=== PATIENT | female | born 1960 | race Hispanic/Latino ===

== ENCOUNTER 2017-01-24 12:19 | Emergency (ER) | payer SELFPAY ==
[2017-01-24 12:28] VITALS: BP 149/77
[2017-01-24 12:51] LABS: Basophils % (Auto) 0.5 % (0.0-1.8); Eosinophils % (Auto) 1.3 % (0.0-4.3); Hematocrit 42.7 % (30.3-42.9); Hemoglobin 14.6 gm/dl (10.1-14.3); Mean Corpuscular HGB Conc 34 % (30-34); Mean Corpuscular Hemoglobin 31 pg (28-32); Mean Corpuscular Volume 89 fl (79-97); Platelet Count 317 K/mm3 (140-440); Red Blood Count 4.79 M/mm3 (3.65-5.03); Red Cell Distribution Width 13.8 % (13.2-15.2); White Blood Count 15.6 K/mm3 (4.5-11.0)
[2017-01-24] MEDS ORDERED: NACL 0.9% 1000 ML 1,000 ML IV ONE (12:55)
[2017-01-24 13:12] LABS: Alanine Aminotransferase 19 units/L (7-56); Albumin 3.8 g/dL (3.9-5); Albumin/Globulin Ratio 1.1 %; Alkaline Phosphatase 137 units/L (35-129); Anion Gap 19 mmol/L; Blood Urea Nitrogen 14 mg/dL (7-17); Calcium 8.6 mg/dL (8.4-10.2); Carbon Dioxide 21 mmol/L (22-30); Chloride 100.5 mmol/L (98-107); Glucose 97 mg/dL (65-100); Lipase 33 units/L (13-60); Potassium 4.3 mmol/L (3.6-5.0); Sodium 136 mmol/L (137-145); Total Protein 7.4 g/dL (6.3-8.2)
[2017-01-24 13:27] LABS: Bacteria,Urine 1+ /HPF (Negative); Bilirubin,Urine NEG (Negative); Blood,Urine LG (Negative); Ketones,Urine NEG (Negative); Leukocyte Esterase,Urine NEG (Negative); Mucus,Urine FEW /HPF; Nitrite,Urine NEG (Negative); Protein,Urine <15 mg/dL mg/dL (Negative); Urobilinogen,Urine < 2.0 mg/dL (<2.0); WBC,Urine < 1.0 /HPF (0.0-6.0)
[2017-01-24] MEDS ORDERED: ZOFRAN IV ONE (13:27)
[2017-01-24] MEDS ORDERED: MORPHINE IV ONE (13:27)
[2017-01-24] MEDS ORDERED: ZOSYN/NS 4.5GM/100ML 4.5 GM/100 ML VIAL IV ONE (13:27)
--- NOTE | 2017-01-24 14:38 | Emergency Department Report ---
ED General Adult HPI - General Chief complaint: Abdominal Pain Stated complaint: LT SIDE PAIN Time Seen by Provider: 01/24/17 12:51 Source: patient Mode of arrival: Ambulatory Limitations: No Limitations - History of Present Illness Initial comments: Patient complains of left lower quadrant pain since yesterday. She states that she has had this pain somewhat intermittently in the past but not this severe. She felt as though she had a fever earlier but not measure her temperature. She denies nausea vomiting or diarrhea. She states she had a kidney stone before but this feels somewhat different. The pain starts in the left lower quadrant and somewhat radiates to the right side but not posteriorly. She has a history of a cholecystectomy. -: Gradual, hour(s) Location: abdomen, left Radiation: other (Kayexalate for his the right anteriorly) Quality: aching Consistency: constant Improves with: none Associated Symptoms: denies other symptoms (subjective fever) Treatments Prior to Arrival: none - Related Data Previous Rx's Medication Instructions Recorded Last Taken Type Ciprofloxacin HCl [Ciprofloxacin 500 mg PO Q12HR #14 tab 01/24/17 Unknown Rx TAB] HYDROcodone/APAP 5-325 [[place] 1 each PO Q6HR PRN #14 tablet 01/24/17 Unknown Rx 5/325] Allergies Allergy/AdvReac Type Severity Reaction Status Date / Time No Known Allergies Allergy Unverified 01/24/17 12:22 ED Review of Systems ROS: Stated complaint: LT SIDE PAIN Other details as noted in HPI Constitutional: see HPI. denies: chills Eyes: denies: eye pain, eye discharge, vision change ENT: denies: ear pain, throat pain Respiratory: denies: cough, shortness of breath, wheezing Cardiovascular: denies: chest pain, palpitations Endocrine: no symptoms reported Gastrointestinal: as per HPI, abdominal pain. denies: nausea, diarrhea Genitourinary: denies: urgency, dysuria, discharge Musculoskeletal: denies: back pain, joint swelling, arthralgia Skin: denies: rash, lesions Neurological: denies: headache, weakness, paresthesias Psychiatric: denies: anxiety, depression Hematological/Lymphatic: denies: easy bleeding, easy bruising ED Past Medical Hx - Past Medical History Hx Diabetes: Yes Additional medical history: high cholesterol - Surgical History Hx Cholecystectomy: Yes Additional Surgical History: tonsil and adnoids, tubes in ears - Social History Smoking Status: Current Every Day Smoker Substance Use Type: None - Medications Home Medications: Home Medications Medication Instructions Recorded Confirmed Last Taken Type Ciprofloxacin HCl [Ciprofloxacin 500 mg PO Q12HR #14 tab 01/24/17 Unknown Rx TAB] HYDROcodone/APAP 5-325 [[place] 1 each PO Q6HR PRN #14 tablet 01/24/17 Unknown Rx 5/325] ED Physical Exam - General Limitations: No Limitations General appearance: alert, in no apparent distress - Head Head exam: Present: atraumatic, normocephalic - Eye Eye exam: Present: normal appearance. Absent: scleral icterus - ENT ENT exam: Present: mucous membranes moist - Neck Neck exam: Present: normal inspection - Respiratory Respiratory exam: Present: normal lung sounds bilaterally. Absent: respiratory distress - Cardiovascular Cardiovascular Exam: Present: regular rate, normal rhythm. Absent: systolic murmur, diastolic murmur, rubs, gallop - GI/Abdominal GI/Abdominal exam: Present: soft, tenderness (left lower quadrant tenderness to palpation), normal bowel sounds. Absent: distended, guarding, rebound, rigid - Extremities Exam Extremities exam: Present: normal inspection - Back Exam Back exam: Present: normal inspection - Neurological Exam Neurological exam: Present: alert, oriented X3, CN II-XII intact. Absent: motor sensory deficit - Psychiatric Psychiatric exam: Present: normal affect, normal mood - Skin Skin exam: Present: warm, dry, intact, normal color. Absent: rash ED Course Vital Signs 01/24/17 01/24/17 12:22 13:21 Temperature 98.6 F Pulse Rate 79 Respiratory 18 18 Rate Blood Pressure 149/77 O2 Sat by Pulse 98 100 Oximetry - Reevaluation(s) Reevaluation #1: Patient was given Zofran and Morphine. One dose of Zofran. According to Dr. Fine radiologist patient has no signs of diverticulitis but sigmoid diverticulosis. Reexamination the patient was found to be walking without difficulty back from the bathroom. Her abdominal exam revealed no left lower quadrant tenderness. She stated that she was having more discomfort in the upper left quadrant but really was not tender there either. Looking at the patient's CT I wondered whether she might have some haziness in the mesentery associated with the sigmoid. If she does have a diverticulitis, I would assume it is very early. I discussed this with Dr. Wallis. He stated that he would be happy to see the patient in his office for reexamination. He requested that the patient be placed on Levaquin. 01/24/17 15:13 ED Medical Decision Making - Lab Data Result diagrams: 01/24/17 12:39 01/24/17 12:39 Laboratory Results - last 24 hr 01/24/17 01/24/17 01/24/17 12:39 12:39 12:45 WBC 15.6 H RBC 4.79 Hgb 14.6 H Hct 42.7 MCV 89 MCH 31 MCHC 34 RDW 13.8 Plt Count 317 Lymph % (Auto) 28.4 [place] % (Auto) 7.4 H Eos % (Auto) 1.3 Baso % (Auto) 0.5 Lymph # 4.4 [place] # 1.1 H Eos # 0.2 Baso # 0.1 Seg Neutrophils % 62.4 Seg Neutrophils # 9.7 H Sodium 136 L Potassium 4.3 Chloride 100.5 Carbon Dioxide 21 L Anion Gap 19 BUN 14 Creatinine 0.4 L Estimated GFR > 60 BUN/Creatinine Ratio 35.00 Glucose 97 Calcium 8.6 Total Bilirubin 0.20 AST 13 ALT 19 Alkaline Phosphatase 137 H Total Protein 7.4 Albumin 3.8 L Albumin/Globulin Ratio 1.1 Lipase 33 Urine Color Straw Urine Turbidity Clear Urine pH 5.0 Ur Specific [place] 1.011 Urine Protein <15 mg/dl Urine Glucose (UA) Neg Urine Ketones Neg Urine Blood Lg Urine Nitrite Neg Urine Bilirubin Neg Urine Urobilinogen < 2.0 Ur Leukocyte Esterase Neg Urine WBC (Auto) < 1.0 Urine RBC (Auto) 5.0 Urine Bacteria (Auto) 1+ Urine Mucus Few - Radiology Data Radiology results: report reviewed interpreted by me: Sigmoid diaphoretic acute process without diverticulitis per Dr. Fine radiologist. Incidental nephrolithiasis. Small umbilical hernia without bowel present. Critical care attestation.: If time is entered above; I have spent that time in minutes in the direct care of this critically ill patient, excluding procedure time. ED Disposition Clinical Impression: Abdominal pain Qualifiers: Abdominal location: left lower quadrant Qualified Code(s): R10.32 - Left lower quadrant pain Diverticulosis Qualifiers: Diverticulosis site: diverticulosis of large intestine Diverticulosis bleeding : diverticulosis without bleeding Qualified Code(s): K57.30 - Diverticulosis of large intestine without perforation or abscess without bleeding Disposition: TO HOME OR SELFCARE Is pt being admited?: No Does the pt Need Aspirin: No Condition: Stable Instructions: Abdominal Pain (ED), Diverticulosis (ED), Diverticulitis (ED) Additional Instructions: Rx as directed. Return to the emergency department if the pain gets worse or if you have any fever. Otherwise see Dr. Wallis in his office by Friday. Prescriptions: Ciprofloxacin HCl [Ciprofloxacin TAB] 500 mg PO Q12HR #14 tab HYDROcodone/APAP 5-325 [[place] 5/325] 1 each PO Q6HR PRN #14 tablet PRN Reason: Pain Referrals: PRIMARY CARE, [Primary Care Provider] - 3-5 Days RIKKI WALLIS MD [Staff Physician] - 2-3 Days Time of Disposition: 15:40
--- NOTE | 2017-01-24 14:46 | Cat Scan Report ---
CT scan of abdomen and pelvis with IV contrast: History: Left lower quadrant pain, leukocytosis. Findings: There is 3 mm subpleural nodule identified at right lower lobe seen on series 2 image 2. No consolidation or pleural effusion. No pericardial effusion. Normal liver pancreas and spleen. Patient status post cholecystectomy. Normal adrenals. Two 1 mm mm nonobstructing calculi right kidney. Subcentimeter cyst upper pole left kidney. Normal bladder. No free intraperitoneal fluid or air. No evidence of adenopathy. Atherosclerotic aorta without aneurysm. Multiple diverticula sigmoid colon without evidence of diverticulitis. No abscess. No evidence of appendicitis. Small umbilical hernia containing fat. Impression: Diverticulitis sigmoid. Nonobstructing calculi right kidney. Cyst left kidney. Small umbilical hernia containing fat. Single nodule right lung.
== END 2017-01-24 15:50 | disposition home or self-care (01) ==
LOC: ED 12:19
DX: R10.32 Left lower quadrant pain (principal); K57.30 Diverticulosis of large intestine without perforation or abscess without bleeding; E11.9 Type 2 diabetes mellitus without complications; F17.200 Nicotine dependence, unspecified, uncomplicated
CPT/HCPCS: 36415; 74177; 80053; 81001; 83690; 85025; 96365; 96375; 99284; J2270; J2405; J2543; J7030; Q9967

== ENCOUNTER 2017-08-20 03:45 | Inpatient (IN) | payer SELFPAY ==
[2017-08-20] MEDS ORDERED: ASPIRIN PO ONE (04:24)
[2017-08-20 04:57] LABS: Basophils % (Auto) 0.3 % (0.0-1.8); Eosinophils % (Auto) 0.3 % (0.0-4.3); Hematocrit 42.2 % (30.3-42.9); Hemoglobin 14.2 gm/dl (10.1-14.3); Lymphocytes # (Auto) 2.8 K/mm3 (1.2-5.4); Lymphocytes % (Auto) 38.8 % (13.4-35.0); Mean Corpuscular HGB Conc 34 % (30-34); Mean Corpuscular Hemoglobin 29 pg (28-32); Mean Corpuscular Volume 87 fl (79-97); Monocytes # (Auto) 0.7 K/mm3 (0.0-0.8); Monocytes % (Auto) 9.1 % (0.0-7.3); Platelet Count 286 K/mm3 (140-440); Red Blood Count 4.85 M/mm3 (3.65-5.03); Red Cell Distribution Width 14.3 % (13.2-15.2)
[2017-08-20 05:13] LABS: BUN/Creatinine Ratio 28; Blood Urea Nitrogen 11 mg/dL (7-17); Calcium 8.4 mg/dL (8.4-10.2); Hemolysis Index 2
[2017-08-20] MEDS ORDERED: TORADOL IV ONE (06:17)
[2017-08-20] MEDS ORDERED: MORPHINE IV ONE (06:17)
[2017-08-20] MEDS ORDERED: FLEXERIL PO ONE (06:17)
[2017-08-20] MEDS ORDERED: ZOFRAN IV ONE (06:18)
--- NOTE | 2017-08-20 06:24 | Emergency Department Report ---
ED General Adult HPI - General Chief complaint: Chest Pain Stated complaint: CP Source: patient, EMS Mode of arrival: Stretcher Limitations: Other - History of Present Illness Initial comments: Ms. Theodore is a 57 yo female with hx of diabetes who presents with 4 days of left flank pain radiating to her upper back and chest. Pain feels like a knot in her back, 20/10 in severity. Worse with movement. Gradual onset but worse over the last 2 days. No vomiting. No urinary difficulties. Denies persistent back pain. She has had diarrhea. She has RLQ pain only when she coughs. She also has a hx of kidney stones. Diabetes has not been managed because she does not have health insurance. She explained that the chest pain really scared her. - Related Data Previous Rx's Medication Instructions Recorded Last Taken Type Ciprofloxacin HCl [Ciprofloxacin 500 mg PO Q12HR #14 tab 01/24/17 Unknown Rx TAB] HYDROcodone/APAP 5-325 [[place] 1 each PO Q6HR PRN #14 tablet 01/24/17 Unknown Rx 5/325] Allergies Allergy/AdvReac Type Severity Reaction Status Date / Time No Known Allergies Allergy Verified 08/20/17 06:12 ED Review of Systems ROS: Stated complaint: CP Other details as noted in HPI Comment: All other systems reviewed and negative Constitutional: denies: fever, malaise Respiratory: denies: cough Genitourinary: denies: dysuria ED Past Medical Hx - Past Medical History Previous Medical History?: Yes Hx Diabetes: Yes Additional medical history: high cholesterol. 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 - Surgical History Past Surgical History?: Yes Hx Cholecystectomy: Yes Additional Surgical History: tonsil and adnoids, tubes in ears - Social History Smoking Status: Current Every Day Smoker Substance Use Type: None - Medications Home Medications: Home Medications Medication Instructions Recorded Confirmed Last Taken Type Ciprofloxacin HCl [Ciprofloxacin 500 mg PO Q12HR #14 tab 01/24/17 Unknown Rx TAB] HYDROcodone/APAP 5-325 [[place] 1 each PO Q6HR PRN #14 tablet 01/24/17 Unknown Rx 5/325] ED Physical Exam - General Limitations: Other General appearance: alert, in no apparent distress - Head Head exam: Present: atraumatic, normocephalic - Eye Eye exam: Present: normal appearance - ENT ENT exam: Present: mucous membranes moist - Neck Neck exam: Present: normal inspection - Respiratory Respiratory exam: Present: normal lung sounds bilaterally. Absent: respiratory distress - Cardiovascular Cardiovascular Exam: Present: regular rate, normal rhythm, normal heart sounds. Absent: systolic murmur, diastolic murmur, rubs, gallop - GI/Abdominal GI/Abdominal exam: Present: soft, normal bowel sounds. Absent: distended, tenderness, guarding, rebound, rigid - Extremities Exam Extremities exam: Present: normal inspection - Back Exam Back exam: Present: normal inspection, full ROM, CVA tenderness (L), muscle spasm (tense paraspinal muscles at the lower left back) - Neurological Exam Neurological exam: Present: alert, oriented X3 - Psychiatric Psychiatric exam: Present: normal affect, normal mood - Skin Skin exam: Present: warm, dry, intact, normal color. Absent: rash ED Course Vital Signs 08/20/17 08/20/17 08/20/17 03:46 04:00 04:15 Temperature Pulse Rate 72 76 Respiratory 25 H 20 Rate Blood Pressure 137/68 119/57 Blood Pressure [Left] O2 Sat by Pulse 93 91 Oximetry 08/20/17 08/20/17 08/20/17 04:30 04:45 05:00 Temperature Pulse Rate 68 69 69 Respiratory 20 23 23 Rate Blood Pressure 117/57 120/55 127/60 Blood Pressure [Left] O2 Sat by Pulse 91 91 91 Oximetry 08/20/17 08/20/17 08/20/17 05:15 05:35 05:40 Temperature Pulse Rate 73 Respiratory 22 18 Rate Blood Pressure 120/58 120/58 Blood Pressure [Left] O2 Sat by Pulse 91 96 96 Oximetry 08/20/17 08/20/17 08/20/17 05:45 06:00 06:15 Temperature Pulse Rate 68 72 74 Respiratory 21 22 24 Rate Blood Pressure 128/55 124/61 133/65 Blood Pressure [Left] O2 Sat by Pulse 90 92 Oximetry 08/20/17 08/20/17 08:00 08:46 Temperature 98.7 F Pulse Rate 72 Respiratory 18 18 Rate Blood Pressure Blood Pressure 135/62 [Left] O2 Sat by Pulse 99 Oximetry ED Medical Decision Making - Lab Data Result diagrams: 08/20/17 04:36 08/20/17 04:36 Laboratory Results - last 24 hr 01/24/18 01/24/18 01/24/18 04:36 04:36 07:22 WBC 7.3 RBC 4.85 Hgb 14.2 Hct 42.2 MCV 87 MCH 29 MCHC 34 RDW 14.3 Plt Count 286 Lymph % (Auto) 38.8 H [place] % (Auto) 9.1 H Eos % (Auto) 0.3 Baso % (Auto) 0.3 Lymph # 2.8 [place] # 0.7 Eos # 0.0 Baso # 0.0 Seg Neutrophils % 51.5 Seg Neutrophils # 3.8 Sodium 136 L Potassium 3.7 Chloride 98.4 Carbon Dioxide 23 Anion Gap 18 BUN 11 Creatinine 0.4 L Estimated GFR > 60 BUN/Creatinine Ratio 28 Glucose 116 H Calcium 8.4 Troponin T < 0.010 < 0.010 Triglycerides Cholesterol LDL Cholesterol Direct HDL Cholesterol Cholesterol/HDL Ratio 08/20/17 09:09 WBC RBC Hgb Hct MCV MCH MCHC RDW Plt Count Lymph % (Auto) [place] % (Auto) Eos % (Auto) Baso % (Auto) Lymph # [place] # Eos # Baso # Seg Neutrophils % Seg Neutrophils # Sodium Potassium Chloride Carbon Dioxide Anion Gap BUN Creatinine Estimated GFR BUN/Creatinine Ratio Glucose Calcium Troponin T 1.830 H* D Triglycerides 303 H Cholesterol 208 H LDL Cholesterol Direct 118 HDL Cholesterol 30 L Cholesterol/HDL Ratio 6.93 - EKG Data -: EKG Interpreted by Me (normal EKG rate 75 ) EKG shows normal: sinus rhythm, axis, intervals, QRS complexes, ST-T waves Rate: normal - EKG Data 08/20/17 11:57 second EKG 1031 NSR nl axis first deg AV block no ST elevation no T wave abnormality - Medical Decision Making Ms. Theodore had pain in several different area including RLQ, lower back and chest pain. Abdominal pain attributed to strain. back pain attributed to spasm. She does have evidence of STEMI second troponin 1.83 Cardiology team DONNELL Montesinos Hernandez and Dr. Balbuena evaluated patient in ED. Heparin protocol initiated. Cardiac cath planned in AM Dr. Russell Hospitalist will admit Critical care attestation.: If time is entered above; I have spent that time in minutes in the direct care of this critically ill patient, excluding procedure time. ED Disposition Clinical Impression: NSTEMI (non-ST elevated myocardial infarction), Lumbar strain Disposition: OP ADMIT IP TO THIS HOSP Is pt being admited?: Yes Condition: Good Referrals: NORMA MORAN MD [Primary Care Provider] - 3-5 Days
--- NOTE | 2017-08-20 06:50 | Cat Scan Report ---
FINAL REPORT EXAM: CT ABDOMEN PELVIS WO CON HISTORY: left flank pain hx of kidney stone TECHNIQUE: Routine axial imaging was obtained of the abdomen and pelvis without IV contrast with sagittal coronal reconstructions. Comparison is made to the study of 01/24/2017. FINDINGS: The lung bases do not show any infiltrates or effusions. There is a stable 3 millimeter noncalcified juxtapleural nodule in the right middle lobe. There is a small hiatal hernia. The gallbladder has been removed. The liver, biliary tree, pancreas, spleen, and adrenal glands appear normal. Both kidneys reveal multiple nonobstructing stones bilaterally measuring up to 2 millimeters in diameter. There is no evidence of hydronephrosis. There calcification of the abdominal aorta. The bowel loops are normal in caliber and course. There are multiple uncomplicated colonic diverticula. The appendix is not enlarged. In the pelvis the uterus and bladder appear normal. There are phleboliths along the floor of the pelvis. The skeletal structures reveal facet arthropathy changes in the lower lumbar spine. IMPRESSION: Bilateral nonobstructing renal calculi. No evidence of hydronephrosis. Uncomplicated colonic diverticulosis. No acute process in the abdomen and pelvis
[2017-08-20] MEDS ORDERED: FLEXERIL ONE (08:30)
[2017-08-20] MEDS ORDERED: MORPHINE ONE (08:30)
[2017-08-20] MEDS ORDERED: TORADOL ONE (08:30)
[2017-08-20] MEDS ORDERED: ZOFRAN ONE (08:31)
[2017-08-20] MEDS ORDERED: BABY ASPIRIN PO ONE (10:22)
[2017-08-20 10:43] LABS: Chol/HDL Ratio 6.93 %
[2017-08-20] MEDS ORDERED: HEPARIN 10,000 UNITS/10 ML IV ONE ×2 (11:55→20:39)
--- NOTE | 2017-08-20 11:56 | Consultation ---
History of Present Illness Consult date: 08/20/17 Requesting physician: ODELL JENNINGS Consult reason: elevated troponin History of present illness: The pt is a 57 yo female with a past medical history significant for DM, HLP, kidney stones and tobacco use. She is previously unknown to our practice. She does not regularly see doctors due to insurance issues. She presented with c/o left flank pain for the past 4 days and chest pain since yesterday evening around 10PM. She feels as though her flank pain is now radiating into her chest. She describes her chest pain as an intermittent, left-sided, nonexertional, nonradiating stabbing pain which is associated with LUE tingling and neck pain. She denies any fever, chills, SOB, palpitations, n/v, diaphoresis , dizziness or syncope. She does admit to a nonproductive cough for the past several days. Admission ECG showed no acute ischemic changes. Troponins are trending upwards, with initial troponin negative for AMI and second troponin 1.830. On evaluation, pt reports near resolution of her chest pain. She denies any prior cardiac issues or cardiac evaluation. Past History Past Medical History: diabetes, hyperlipidemia, other (kidney stones) Past Surgical History: tonsillectomy Social history: smoking. denies: alcohol abuse, prescription drug abuse Medications and Allergies Allergies Allergy/AdvReac Type Severity Reaction Status Date / Time No Known Allergies Allergy Verified 08/20/17 06:12 Home Medications Medication Instructions Recorded Confirmed Last Taken Type Ciprofloxacin HCl [Ciprofloxacin 500 mg PO Q12HR #14 tab 01/24/17 Unknown Rx TAB] HYDROcodone/APAP 5-325 [[place] 1 each PO Q6HR PRN #14 tablet 01/24/17 Unknown Rx 5/325] Review of Systems Constitutional: no weight loss, no weight gain, no fever, no chills, no sweats Ears, nose, mouth and throat: no ear pain, no nose pain, no sinus pressure, no sinus pain Cardiovascular: chest pain, no orthopnea, no palpitations, no rapid/irregular heart beat, no edema, no syncope, no lightheadedness, no shortness of breath, no dyspnea on exertion, no high blood pressure, no leg edema, no decreased exercise tolerance Respiratory: cough, no cough with sputum, no shortness of breath, no dyspnea on exertion, no congestion, no wheezing, no pain on inspiration Gastrointestinal: no nausea, no vomiting, no diarrhea, no constipation, no change in bowel habits Genitourinary Female: no pelvic pain, no flank pain, no dysuria, no urinary frequency, no urgency Musculoskeletal: arm numbness/tingling (LUE), no neck stiffness, no neck pain, no shooting arm pain, no low back pain, no shooting leg pain, no leg numbness/ tingling, no redness of joints Integumentary: no rash, no pruritis, no redness, no sores, no wounds Neurological: no head injury, no paralysis, no weakness, no parathesias, no numbness, no seizures, no syncope Psychiatric: no anxiety Endocrine: no cold intolerance, no heat intolerance Hematologic/Lymphatic: no easy bruising, no easy bleeding, no lymphadenopathy Allergic/Immunologic: no urticaria, no wheezing, no persistent infections Physical Examination Vital Signs BP 137/68 08/20/17 03:46 General appearance: no acute distress HEENT: Positive: PERRL, Normocephaly, Mucus Membranes Moist Neck: Positive: neck supple, trachea midline Cardiac: Positive: Reg Rate and Rhythm, S1/S2 Lungs: Positive: clear to auscultation Neuro: Positive: Grossly Intact, Cranial Nerve 2-12 Intact Abdomen: Positive: Soft. Negative: Tender Skin: Positive: Clear. Negative: Rash, Wound Musculoskeletal: No Fluid Collection, No Pain, Normal Range of Motion Extremities: Absent: edema Results 08/20/17 04:36 08/20/17 04:36 Lipids 08/20/17 Range/Units 09:09 Triglycerides 303 H (2-149) mg/dL Cholesterol 208 H (50-199) mg/dL HDL Cholesterol 30 L (40-59) mg/dL Cholesterol/HDL Ratio 6.93 % CBC 08/20/17 Range/Units 04:36 WBC 7.3 (4.5-11.0) K/mm3 RBC 4.85 (3.65-5.03) M/mm3 Hgb 14.2 (10.1-14.3) gm/dl Hct 42.2 (30.3-42.9) % Plt Count 286 (140-440) K/mm3 Lymph # 2.8 (1.2-5.4) K/mm3 [place] # 0.7 (0.0-0.8) K/mm3 Eos # 0.0 (0.0-0.4) K/mm3 Baso # 0.0 (0.0-0.1) K/mm3 Comprehensive Metabolic Panel 08/20/17 Range/Units 04:36 Sodium 136 L (137-145) mmol/L Potassium 3.7 (3.6-5.0) mmol/L Chloride 98.4 (98-107) mmol/L Carbon Dioxide 23 (22-30) mmol/L BUN 11 (7-17) mg/dL Creatinine 0.4 L (0.7-1.2) mg/dL Glucose 116 H (65-100) mg/dL Calcium 8.4 (8.4-10.2) mg/dL - Imaging and Cardiology Echo: pending Cardiac cath: pending EKG: report reviewed, image reviewed EKG interpretations - Telemetry EKG Rhythm: Sinus Rhythm - EKG Sinus rhythms and dysrhythmias: sinus rhythm Assessment and Plan Assessment: NSTEMI type I - ECG with NAF DM HLP Tobacco use - cessation encouraged Plan: Pt to be admitted per hospitalists. Initiate heparin gtt with initial bolus. Initiate ASA, statin, plavix, lopressor, imdur. Cont to trend Pat. Repeat ECG in AM. Obtain echo. Plan for coronary angiography tomorrow AM pending pt remains clinically stable overnight. Indications, potential risks and benefits of LHC reviewed with pt and she is agreeable to proceed. NPO after MN. The patient has been seen in conjunction with Dr. Balbuena who agrees with the assessment and plan of care.
[2017-08-20] MEDS ORDERED: HEPARIN/ 0.45% NACL-25,000 UNIT/500 ML 25,000 UNIT/500 ML BAG IV SCH (12:00)
[2017-08-20 12:39] LABS: Hematocrit 42.5 % (30.3-42.9); Hemoglobin 14.8 gm/dl (10.1-14.3)
[2017-08-20 12:50] LABS: INR 0.95 (0.87-1.13)
[2017-08-20] MEDS ORDERED: NACL 0.9% 500 ML 500 ML IV SCH (13:00)
[2017-08-20] MEDS ORDERED: IMDUR PO SCH (13:00)
[2017-08-20 13:09] LABS: Partial Thromboplastin Time 129.7 Sec. (24.2-36.6)
[2017-08-20] MEDS: PLAVIX PO SCH (14:45)
[2017-08-20] MEDS: LOPRESSOR PO SCH (22:25)
--- NOTE | 2017-08-20 23:52 | History and Physical Report ---
History of Present Illness Date of examination: 08/20/17 Date of admission: 08/20/17 12:02 Chief complaint: Chest pain 1 day History of present illness: History of Present Illness Ms. Theodore is a 57 yo female with hx of diabetes who presents with 4 days of left flank pain radiating to her upper back and chest. Pain feels like a knot in her back, 20/10 in severity. Worse with movement. Gradual onset but worse over the last 2 days. No vomiting. No urinary difficulties. Denies persistent back pain. She has had diarrhea. She has RLQ pain only when she coughs. She also has a hx of kidney stones. Diabetes has not been managed because she does not have health insurance. She explained that the chest pain really scared her. Past Medical History Previous Medical History?: Yes Hx Diabetes: Yes Additional medical history: high cholesterol. - Surgical History Past Surgical History?: Yes Hx Cholecystectomy: Yes Additional Surgical History: tonsil and adenoids, tubes in ears - Social History Smoking Status: Current Every Day Smoker Substance Use Type: None - Medications Home Medications: Home Medications Medication Instructions Recorded Confirmed Last Taken Type Ciprofloxacin HCl [Ciprofloxacin 500 mg PO Q12HR #14 tab 01/24/17 Unknown Rx TAB] HYDROcodone/APAP 5-325 [[place] 1 each PO Q6HR PRN #14 tablet 01/24/17 Unknown Rx 5/325] Past History Past Medical History: diabetes, hyperlipidemia, other (kidney stones) Past Surgical History: tonsillectomy Social history: smoking. denies: alcohol abuse, prescription drug abuse Medications and Allergies Allergies Allergy/AdvReac Type Severity Reaction Status Date / Time No Known Allergies Allergy Verified 08/20/17 06:12 Home Medications Medication Instructions Recorded Confirmed Last Taken Type No Known Home Medications [No 08/20/17 08/20/17 Unknown History Reported Home Medications] Active Meds: Active Medications Aspirin (Aspirin) 325 mg PO QDAY G[facility] Atorvastatin Calcium (Lipitor) 40 mg PO QHS [facility] Last Admin: 08/20/17 22:25 Dose: 40 mg Clopidogrel Bisulfate (Plavix) 75 mg PO DAILY [facility] Last Admin: 08/20/17 14:45 Dose: 75 mg Heparin Sodium/Sodium Chloride (Heparin/ 0.45% Nacl-25,000 Unit/500 Ml) 25,000 unit in 500 mls @ 20 mls/hr IV TITRATE GURINDER; 1,000 UNITS/HR PRN Reason: Protocol Last Titration: 08/20/17 19:36 Dose: 1,050 units/hr, 21 mls/hr Isosorbide Mononitrate (Imdur) 30 mg PO QDAY [facility] Last Admin: 08/20/17 14:44 Dose: 30 mg Metoprolol Tartrate (Lopressor) 12.5 mg PO BID [facility] Last Admin: 08/20/17 22:25 Dose: 12.5 mg Review of Systems All systems: negative Cardiovascular: chest pain Gastrointestinal: abdominal pain Exam - Constitutional Vitals: Temp Pulse Resp BP Pulse Ox 98.2 F 74 18 105/56 94 08/20/17 20:09 08/20/17 22:25 08/20/17 20:09 08/20/17 22:25 08/20/17 20:09 General appearance: Present: mild distress, well-nourished - EENT Eyes: Present: PERRL ENT: hearing intact, clear oral mucosa - Neck Neck: Present: supple, normal ROM - Respiratory Respiratory effort: normal Respiratory: bilateral: CTA - Cardiovascular Heart rate: 80 Rhythm: regular Heart Sounds: Present: S1 & S2. Absent: rub, click - Extremities Extremities: pulses symmetrical, No edema Peripheral Pulses: within normal limits - Abdominal General gastrointestinal: Present: soft, non-tender, non-distended, normal bowel sounds Female genitourinary: Present: normal - Integumentary Integumentary: Present: clear, warm, dry - Musculoskeletal Musculoskeletal: gait normal, strength equal bilaterally - Psychiatric Psychiatric: appropriate mood/affect, intact judgment & insight - Neurologic Neurologic: CNII-XII intact, moves all extremities Results - Labs CBC & Chem 7: 08/21/17 04:51 08/21/17 04:51 Labs: Laboratory Last Values WBC 7.3 K/mm3 (4.5-11.0) 08/20/17 04:36 RBC 4.85 M/mm3 (3.65-5.03) 08/20/17 04:36 Hgb 14.8 gm/dl (10.1-14.3) H 08/20/17 12:27 Hct 42.5 % (30.3-42.9) 08/20/17 12:27 MCV 87 fl (79-97) 08/20/17 04:36 MCH 29 pg (28-32) 08/20/17 04:36 MCHC 34 % (30-34) 08/20/17 04:36 RDW 14.3 % (13.2-15.2) 08/20/17 04:36 Plt Count 279 K/mm3 (140-440) 08/20/17 12:27 Lymph % (Auto) 38.8 % (13.4-35.0) H 08/20/17 04:36 [place] % (Auto) 9.1 % (0.0-7.3) H 08/20/17 04:36 Eos % (Auto) 0.3 % (0.0-4.3) 08/20/17 04:36 Baso % (Auto) 0.3 % (0.0-1.8) 08/20/17 04:36 Lymph # 2.8 K/mm3 (1.2-5.4) 08/20/17 04:36 [place] # 0.7 K/mm3 (0.0-0.8) 08/20/17 04:36 Eos # 0.0 K/mm3 (0.0-0.4) 08/20/17 04:36 Baso # 0.0 K/mm3 (0.0-0.1) 08/20/17 04:36 Seg Neutrophils % 51.5 % (40.0-70.0) 08/20/17 04:36 Seg Neutrophils # 3.8 K/mm3 (1.8-7.7) 08/20/17 04:36 PT 13.1 Sec. (12.2-14.9) 08/20/17 12:27 INR 0.95 (0.87-1.13) 08/20/17 12:27 APTT 129.7 Sec. (24.2-36.6) H* 08/20/17 12:27 Heparin Anti-Xa Level < 0.10 U.I./ml (0.3-0.7) L 08/20/17 17:24 Sodium 136 mmol/L (137-145) L 08/20/17 04:36 Potassium 3.7 mmol/L (3.6-5.0) 08/20/17 04:36 Chloride 98.4 mmol/L (98-107) 08/20/17 04:36 Carbon Dioxide 23 mmol/L (22-30) 08/20/17 04:36 Anion Gap 18 mmol/L 08/20/17 04:36 BUN 11 mg/dL (7-17) 08/20/17 04:36 Creatinine 0.4 mg/dL (0.7-1.2) L 08/20/17 04:36 Estimated GFR > 60 ml/min 08/20/17 04:36 BUN/Creatinine Ratio 28 % 08/20/17 04:36 Glucose 116 mg/dL (65-100) H 08/20/17 04:36 POC Glucose 95 (70-105) 08/20/17 17:22 Calcium 8.4 mg/dL (8.4-10.2) 08/20/17 04:36 Total Creatine Kinase 428 units/L (30-135) H 08/20/17 14:31 CK-MB (CK-2) 2.0 ng/mL (0.0-4.0) 08/20/17 14:31 CK-MB (CK-2) Rel Index 0.4 (0-4) 08/20/17 14:31 Troponin T < 0.010 ng/mL (0.00-0.029) 08/20/17 14:31 Triglycerides 303 mg/dL (2-149) H 08/20/17 09:09 Cholesterol 208 mg/dL (50-199) H 08/20/17 09:09 LDL Cholesterol Direct 118 mg/dL (50-130) 08/20/17 09:09 HDL Cholesterol 30 mg/dL (40-59) L 08/20/17 09:09 Cholesterol/HDL Ratio 6.93 % 08/20/17 09:09 Short CBC 08/20/17 08/21/17 Range/Units 12:27 04:51 WBC 7.9 (4.5-11.0) K/mm3 Hgb 14.8 H 13.6 (10.1-14.3) gm/dl Hct 42.5 39.5 (30.3-42.9) % Plt Count 279 260 (140-440) K/mm3 BMP 08/21/17 04:51 Sodium 141 Potassium 4.1 Chloride 101.0 Carbon Dioxide 26 BUN 13 Creatinine 0.5 L Glucose 97 Calcium 8.2 L Cardiac Enzymes 08/20/17 08/20/17 08/21/17 Range/Units 09:09 14:31 04:51 Total Creatine Kinase 428 H 263 H (30-135) units/L CK-MB (CK-2) 2.0 1.5 (0.0-4.0) ng/mL Troponin T 1.830 H* D < 0.010 < 0.010 (0.00-0.029) ng/mL - Imaging and Cardiology EKG: report reviewed (NSR 54) Assessment and Plan Advance Directives: Yes (FC) VTE prophylaxis?: Chemical Plan of care discussed with patient/family: Yes - Patient Problems (1) NSTEMI (non-ST elevated myocardial infarction) Current Visit: Yes Status: Acute Plan to address problem: On Heparin drip Troponin 1.83 For cath in Am (2) T2DM (type 2 diabetes mellitus) Current Visit: Yes Status: Chronic Qualifiers: Diabetes mellitus complication status: without complication Diabetes mellitus extermination inspector insulin use: without extermination inspector use Qualified Code(s): E11.9 - Type 2 diabetes mellitus without complications Plan to address problem: Not taking any meds Check A1c and start oral hypoglycemics (3) DVT prophylaxis Current Visit: Yes Status: Acute Plan to address problem: on heparin drip
[2017-08-21] MEDS ORDERED: HEPARIN 10,000 UNITS/10 ML IV ONE (03:26)
[2017-08-21 06:07] LABS: Hematocrit 39.5 % (30.3-42.9); Hemoglobin 13.6 gm/dl (10.1-14.3); Mean Corpuscular HGB Conc 34 % (30-34); Mean Corpuscular Hemoglobin 31 pg (28-32); Mean Corpuscular Volume 89 fl (79-97); Platelet Count 260 K/mm3 (140-440); Red Blood Count 4.46 M/mm3 (3.65-5.03); Red Cell Distribution Width 14.4 % (13.2-15.2)
[2017-08-21 06:14] LABS: Creatine Kinase MB 1.5 ng/mL (0.0-4.0); INR 0.96 (0.87-1.13)
[2017-08-21 06:18] LABS: BUN/Creatinine Ratio 26; Blood Urea Nitrogen 13 mg/dL (7-17); Calcium 8.2 mg/dL (8.4-10.2); Hemolysis Index 24
[2017-08-21] MEDS ORDERED: ASPIRIN ONE (08:06)
[2017-08-21] MEDS: PLAVIX PO SCH ×2 (08:14→10:42)
[2017-08-21] MEDS ORDERED: PLAVIX ONE (08:14)
[2017-08-21] MEDS ORDERED: NITROGLYCERIN SYRINGE 0 ML ONE (08:33)
[2017-08-21 08:34] LABS: Band Neutrophils # (Manual) 0.2 K/mm3; Basophils % (Manual) 0 % (0.0-1.8); Total Cells Counted 100
[2017-08-21] MEDS ORDERED: NACL 0.9% 500 ML 500 ML ONE (08:34)
[2017-08-21 08:35] LABS: RBC Morphology Normal
[2017-08-21] MEDS: VERSED ONE ×2 (08:51→09:01)
[2017-08-21] MEDS: SUBLIMAZE ONE ×2 (08:51→09:01)
[2017-08-21] MEDS: CALAN ONE ×2 (08:52→09:06)
[2017-08-21] MEDS: XYLOCAINE 2% INFILTRATI ONE ×2 (08:52→09:04)
[2017-08-21] MEDS: HEPARIN 10,000 UNITS/10 ML ONE ×2 (08:52→09:06)
[2017-08-21] MEDS: HEPARIN/NS 5000 UNIT/500ML(CATH LAB) 1,000 ML IR ONE ×2 (08:53→08:55)
[2017-08-21] MEDS ORDERED: ASPIRIN PO SCH (10:00)
[2017-08-21] MEDS: LOPRESSOR PO SCH (10:47)
--- NOTE | 2017-08-21 10:47 | Progress Note ---
Assessment and Plan Assessment: Atypical chest pain - currently resolved Elevated troponin x 1 set - with downwards trend; ECG with NAF; s/p [facility] this AM which showed normal coronaries DM HLP Tobacco use - cessation encouraged Plan: Pt s/p [facility] this AM which showed normal coronaries. D/c heparin gtt, plavix and Imdur. Decrease ASA to 81mg daily. Await echo. Pending echo reveals no gross abnormalities, pt may discharge home this afternoon from cardiology standpoint. Follow up in our office with Dr. Culp within 1-2 weeks of hospital discharge ( [phone]). The patient has been seen in conjunction with Dr. Balbuena who agrees with the assessment and plan of care. Subjective Date of service: 08/21/17 Principal diagnosis: chest pain Interval history: pt for [facility] this AM. no current complaints. Objective Last Vital Signs Temp 98 F 08/21/17 05:34 Pulse 64 08/21/17 05:34 Resp 20 08/21/17 05:34 BP 96/38 08/21/17 05:34 Pulse Ox 90 08/21/17 05:34 - Physical Examination HEENT: Positive: PERRL, Normocephaly, Mucus Membranes Moist Neck: Positive: neck supple, trachea midline Cardiac: Positive: Reg Rate and Rhythm, S1/S2 Lungs: Positive: clear to auscultation Neuro: Positive: Grossly Intact, Cranial Nerve 2-12 Intact Abdomen: Positive: Soft. Negative: Tender Skin: Positive: Clear. Negative: Rash, Wound Musculoskeletal: No Fluid Collection, No Pain, Normal Range of Motion Extremities: Absent: edema - Labs and Meds Cardiac Enzymes 08/20/17 08/21/17 Range/Units 14:31 04:51 CK-MB (CK-2) 2.0 1.5 (0.0-4.0) ng/mL Coagulation 08/20/17 08/21/17 Range/Units 12:27 04:51 PT 13.1 13.3 (12.2-14.9) Sec. INR 0.95 0.96 (0.87-1.13) APTT 129.7 H* (24.2-36.6) Sec. Lipids 08/20/17 Range/Units 09:09 Triglycerides 303 H (2-149) mg/dL Cholesterol 208 H (50-199) mg/dL HDL Cholesterol 30 L (40-59) mg/dL Cholesterol/HDL Ratio 6.93 % CBC 08/20/17 08/21/17 Range/Units 12:27 04:51 WBC 7.9 (4.5-11.0) K/mm3 RBC 4.46 (3.65-5.03) M/mm3 Hgb 14.8 H 13.6 (10.1-14.3) gm/dl Hct 42.5 39.5 (30.3-42.9) % Plt Count 279 260 (140-440) K/mm3 Lymph # [employer] Comprehensive Metabolic Panel 08/21/17 Range/Units 04:51 Sodium 141 (137-145) mmol/L Potassium 4.1 (3.6-5.0) mmol/L Chloride 101.0 (98-107) mmol/L Carbon Dioxide 26 (22-30) mmol/L BUN 13 (7-17) mg/dL Creatinine 0.5 L (0.7-1.2) mg/dL Glucose 97 (65-100) mg/dL Calcium 8.2 L (8.4-10.2) mg/dL - Imaging and Cardiology EKG: report reviewed (NSR 54) Echo: pending Cardiac cath: pending - Telemetry EKG Rhythm: Sinus Rhythm - EKG Sinus rhythms and dysrhythmias: sinus rhythm
[2017-08-21 10:48] VITALS: BP 104/54
--- NOTE | 2017-08-21 12:29 | Cardiac Catherization Report ---
INDICATION FOR PROCEDURE: The patient is a 57-year-old female who presented with complaints of back pain and chest pain. Cardiac enzymes were mildly elevated with atypical chest pain. The patient has history of diabetes, hypertension and hyperlipidemia. With her chest pains and minimally elevated cardiac enzymes, the patient was treated as non-STEMI and scheduled for cardiac catheterization for definitive diagnosis and treatment. The patient is aware of the procedure, potential complications and alternatives of therapy available. DESCRIPTION OF PROCEDURE: The patient was brought to the catheterization laboratory in a fasting condition. The right wrist area and forearm thoroughly cleansed with Betadine solution and sterile drapes were applied. The patient was evaluated for administering moderate sedation and after evaluation, the patient was given IV Versed and fentanyl around 09:03 a.m. Subsequently, local anesthesia was given in the right wrist area and the right radial artery puncture was made without difficulty. A 5-Telugu Slender sheath was introduced. A 5-Telugu multipurpose catheter was used to obtain the angiograms of the left coronary artery in multiple views followed by angiograms of the right coronary artery and left ventriculogram done in TIJERINA projection using hand injection. At the end of the procedure, catheter and sheath were removed. Good hemostasis was achieved with pressure bandage. No untoward complication was noted. She was monitored after sedation up to 09:17 a.m. for any side effects from sedation. The patient was breathing well, communicate well, and hemodynamically stable. The patient was transferred to the room in stable condition. Following findings were noted. HEMODYNAMICS: 1. Opening aortic pressure 120/58, left ventricular pressure 125/23. No gradient across the aortic valve. Estimated ejection fraction 60%. 2. Left ventriculogram done in TIJERINA projection using hand injection showed normal size left ventricle with normal contractility. Mitral regurgitation could not be evaluated. Right coronary artery dominant vessel arises normally from right coronary cusp, angiographically smooth and normal. 3. Left coronary artery arises normally from left coronary cusp. Left main is long, smooth and normal. LAD and its branches are tortuous, but angiographically smooth and normal circumflex artery. Relatively small vessel is angiographically smooth without any significant disease. FINAL IMPRESSION: 1. Normal sized left ventricle with normal contractility. 2. Essentially normal coronary anatomy angiographically. 3. The patient tolerated the procedure well. No untoward complications were noted. The patient will be continued on risk factor modification and medical therapy. Findings were explained to the patient. JOB# [id number] LUPIS/MAURY TINSLEY
--- NOTE | 2017-08-21 16:47 | Discharge Summary ---
Providers - Providers Date of Admission: 08/20/17 12:02 Date of discharge: 08/21/17 Attending physician: CB MITCHELL Primary care physician: NORMA MORAN Hospitalization Condition: Stable Hospital course: per Cardiology "Assessment: Atypical chest pain - currently resolved Elevated troponin x 1 set - with downwards trend; ECG with NAF; s/p [facility] this AM which showed normal coronaries DM HLP Tobacco use - cessation encouraged Plan: Pt s/p [facility] this AM which showed normal coronaries. D/c heparin gtt, plavix and Imdur. Decrease ASA to 81mg daily. Await echo. Pending echo reveals no gross abnormalities, pt may discharge home this afternoon from cardiology standpoint. Follow up in our office with Dr. Culp within 1-2 weeks of hospital discharge ). The patient has been seen in conjunction with Dr. Balbuena who agrees with the assessment and plan of care." I counseled patient on compliance Disposition: DC- TO HOME OR SELFCARE Time spent for discharge: 34 minutes Core Measure Documentation - Palliative Care Palliative Care/ Comfort Measures: Not Applicable - Core Measures Any of the following diagnoses?: none - VTE Discharge Requirements Deep Vein Thrombosis/Pulmonary Embolism Present on Admission: No Has pt received <5 days of overlap therapy or INR<2.0: No Anticoagulant overlap therapy prescribed at discharge: No Contraindication No Overlap Therapy order at DC: Not Indicated Exam - Physical Exam Narrative exam: GEN: WDWN, NAD, AWAKE, ALERT, ORIENTATED 3 HEENT: NCAT, EOMI, PERRL, OP Clear NECK: supple, no adenopathy, no thyromegaly, no JVD CVS/HEART: RRR, NORMAL S1S2, NO JVD, pulses present bilaterally CHEST/LUNGS: CTA B, Symmetrical chest expansion, good air entry bilaterally GI/Abdomen: soft, NTND, good bowel sounds, no guarding or rebound /Bladder: no suprapubic tenderness, no CVA or paraspinal tenderness EXT/Skin: no c/c/e, no obvious rash MSK: FROM x 4 Neuro: CN 2-12 grossly intact, no new focal deficits Psych: calm - Constitutional Vitals: Temp Pulse Resp BP Pulse Ox 98 F 64 20 104/54 90 08/21/17 05:34 08/21/17 10:47 08/21/17 05:34 08/21/17 10:47 08/21/17 05:34 Plan Activity: other (no strenous activity until cleared by pcp) Diet: low salt Special Instructions: smoking cessation Follow up with: NORMA MORAN MD [Primary Care Provider] - 3-5 Days CAMRYNMARGARET CULP MD [Staff Physician] - 7 Days
[2017-08-22] MEDS ORDERED: BABY ASPIRIN PO SCH (10:00)
== END 2017-08-21 18:00 | disposition home or self-care (01) | DRG 287 ==
LOC: ED 03:45 → 4A 12:02
PROVIDERS: ADMIT Internal Medicine; ATTEND Internal Medicine
PROC: 4A023N7 Measurement of Cardiac Sampling and Pressure, Left Heart, Percutaneous Approach (ICD-10-PCS; principal; 2017-08-21)
PROC: B2151ZZ Fluoroscopy of Left Heart using Low Osmolar Contrast (ICD-10-PCS; 2017-08-21)
PROC: B2111ZZ Fluoroscopy of Multiple Coronary Arteries using Low Osmolar Contrast (ICD-10-PCS; 2017-08-21)
DX: R07.89 Other chest pain (principal); E11.9 Type 2 diabetes mellitus without complications; E78.00 Pure hypercholesterolemia, unspecified; F17.200 Nicotine dependence, unspecified, uncomplicated; Z90.49 Acquired absence of other specified parts of digestive tract; S39.012A Strain of muscle, fascia and tendon of lower back, initial encounter
CPT/HCPCS: 36415; 74176; 80048; 80061; 82550; 82553; 82962; 84484; 85007; 85014; 85018; 85025; 85049; 85520; 85610; 85730; 93005; 93010; 93306; 93458; 96374; 96375; 96376; A9270-GY; C1769; C1894; J1644; J1885; J2250; J2270; J2405; J3010; J7040; Q9967

== ENCOUNTER 2019-02-14 19:15 | Emergency (ER) | payer SELFPAY ==
--- NOTE | 2019-02-14 19:22 | Event Note ---
ED Screening Note Date of service: 02/14/19 Time: 19:21 ED Screening Note: 59 y/o female comes in for left foot pain s/p log fell on it . PMH DM, + smoker This initial assessment/diagnostic orders/clinical plan/treatment(s) is/are subject to change based on patients health status, clinical progression and re- assessment by fellow clinical providers in the ED. Further treatment and workup at subsequent clinical providers discretion. Patient/guardian urged not to elope from the ED as their condition may be serious if not clinically assessed and managed. Initial orders include:
[2019-02-14 19:55] VITALS: BP 156/75
[2019-02-14] MEDS ORDERED: IBUPROFEN PO ONE (20:20)
[2019-02-14] MEDS ORDERED: NORCO 5/325 PO ONE (20:20)
--- NOTE | 2019-02-14 20:26 | Emergency Department Report ---
HPI - General Chief Complaint: Extremity Injury, Lower Time Seen by Provider: 02/14/19 20:13 - HPI HPI: [place] 26 The patient is a 59-year-old female presenting with a chief complaint of left foot pain. Patient states she has had a lesion on the lateral aspect of her left heel for approximately 1 week. Patient denies preceding trauma to this lesion. 3 days ago the patient states she dropped a log onto the dorsum of her left foot. Patient states she's had increased pain at the site since the injury. Patient complains of pain with weightbearing. Location: [See above] Duration: [See above] Quality: [See above] Severity: [See above] Modifying factors: [see above] Context: [see above] Mode of transportation: [not driving] ED Past Medical Hx - Past Medical History Previous Medical History?: Yes Hx Diabetes: Yes Hx Kidney Stones: Yes Additional medical history: high cholesterol. 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 - Surgical History Past Surgical History?: Yes Hx Cholecystectomy: Yes Additional Surgical History: tonsil and adnoids, tubes in ears - Family History Family history: no significant - Social History Smoking Status: Current Every Day Smoker (1/2 pack per day) Substance Use Type: Alcohol (rarely) - Medications Home Medications: Home Medications Medication Instructions Recorded Confirmed Last Taken Type Aspirin [Aspirin BABY CHEW TAB] 81 mg PO QDAY #30 tab.chew 08/21/17 Unknown Rx HYDROcodone/APAP 5-325 [[place] 1 - 2 each PO Q6HR PRN #14 tablet 02/14/19 Unknown Rx 5/325] Ibuprofen [Motrin 800 MG tab] 800 mg PO Q8HR PRN #20 tablet 02/14/19 Unknown Rx ED Review of Systems ROS: Stated complaint: FOOT PAIN Other details as noted in HPI Constitutional: no symptoms reported Eyes: denies: eye pain ENT: denies: throat pain Respiratory: no symptoms reported Cardiovascular: denies: chest pain Endocrine: no symptoms reported Gastrointestinal: denies: abdominal pain Genitourinary: denies: dysuria Musculoskeletal: arthralgia Skin: lesions Neurological: denies: headache Physical Exam - Physical Exam Vital Signs: Vital Signs 02/14/19 02/14/19 02/14/19 19:18 19:19 19:54 Temperature 98.0 F 98.0 F 99 F Pulse Rate 82 86 78 Respiratory 18 16 17 Rate Blood Pressure 189/76 189/76 Blood Pressure 156/75 [Left] O2 Sat by Pulse 95 95 98 Oximetry Physical Exam: GENERAL: The patient is well-developed well-nourished female lying on stretcher not appearing to be in acute distress. [] HEENT: Normocephalic. Atraumatic. Extraocular motions are intact. Patient has moist mucous membranes. NECK: Supple. Trachea midline CHEST/LUNGS:There is no respiratory distress noted. HEART/CARDIOVASCULAR: Regular. There is no tachycardia. 2+ left DP. Capillary refill digits of left foot within normal limits ABDOMEN: Abdomen is soft, nontender. Patient has normal bowel sounds. There is no abdominal distention. SKIN: There is a blister to the lateral aspect of the left heel that is intact. There is no surrounding erythema NEURO: The patient is awake, alert, and oriented. The patient is cooperative. The patient has no focal neurologic deficits. The patient has normal speech MUSCULOSKELETAL: There is tenderness to palpation of the dorsum of the left foot. ED Course Vital Signs 02/14/19 02/14/19 02/14/19 19:18 19:19 19:54 Temperature 98.0 F 98.0 F 99 F Pulse Rate 82 86 78 Respiratory 18 16 17 Rate Blood Pressure 189/76 189/76 Blood Pressure 156/75 [Left] O2 Sat by Pulse 95 95 98 Oximetry ED Medical Decision Making - Radiology Data Radiology results: report reviewed (left foot x-ray), image reviewed (left foot x-ray) interpreted by me: Left foot x-ray-no acute fracture seen [facility] [address] [place] [address] XRay Report Signed Patient: DORY ISBELL MR#: [id number] : 1960 Acct:[id number] Age/Sex: 59 / F ADM Date: 02/14/19 Loc: ED Attending Dr: Ordering Physician: SASCHA PATEL Date of Service: 02/14/19 Procedure(s): XR foot 3+V LT Accession Number(s): [id number] cc: SASCHA PAUL Fluoro Time In Minutes: LEFT FOOT, 3 VIEWS INDICATION / CLINICAL INFORMATION: pain log fell on it.. COMPARISON: None available. FINDINGS: No fracture or dislocation identified. No soft tissue abnormality. IMPRESSION: Negative exam. Signer Name: Alice Roper MD Signed: 02/14/2019 8:40 PM Workstation Name: [id number] Transcribed By: Dictated By: Alice Roper MD Electronically Authenticated By: Alice Roper MD Signed Date/Time: 02/14/192039 DD/ 38 TD/TT: - Differential Diagnosis foot fracture, blister, foot contusion Critical care attestation.: If time is entered above; I have spent that time in minutes in the direct care of this critically ill patient, excluding procedure time. ED Disposition Clinical Impression: Contusion of left foot, Blister of left foot Disposition: TO HOME OR SELFCARE Is pt being admited?: No Does the pt Need Aspirin: No Condition: Stable Additional Instructions: Return to the emergency department immediately should you develop worsening symptoms, fever, inability to tolerate food or liquid or any other concerns. Prescriptions: Ibuprofen [Motrin 800 MG tab] 800 mg PO Q8HR PRN #20 tablet PRN Reason: Pain, Moderate (4-6) HYDROcodone/APAP 5-325 [[place] 5/325] 1 - 2 each PO Q6HR PRN #14 tablet PRN Reason: Pain Referrals: ALEXANDRE RESENDIZ MD [Primary Care Provider] - 3-5 Days DERRELL ROBISON DPM [Staff Physician] - 3-5 Days Time of Disposition: 20:52
--- NOTE | 2019-02-14 20:44 | XRay Report ---
LEFT FOOT, 3 VIEWS INDICATION / CLINICAL INFORMATION: pain log fell on it.. COMPARISON: None available. FINDINGS: No fracture or dislocation identified. No soft tissue abnormality. IMPRESSION: Negative exam. Signer Name: Alice Roper MD Signed: 02/14/2019 8:40 PM Workstation Name: [id number]
== END 2019-02-14 21:04 | disposition home or self-care (01) ==
LOC: ED 19:15
DX: S90.32XA Contusion of left foot, initial encounter (principal); S90.822A Blister (nonthermal), left foot, initial encounter; E11.9 Type 2 diabetes mellitus without complications; E78.00 Pure hypercholesterolemia, unspecified; F17.200 Nicotine dependence, unspecified, uncomplicated; Z87.442 Personal history of urinary calculi; Z79.899 Other long term (current) drug therapy; Z90.49 Acquired absence of other specified parts of digestive tract; W20.8XXA Other cause of strike by thrown, projected or falling object, initial encounter; Y93.89 Activity, other specified; Y92.89 Other specified places as the place of occurrence of the external cause; Y99.8 Other external cause status

== ENCOUNTER 2019-12-28 12:05 | Emergency (ER) | payer SELFPAY ==
--- NOTE | 2019-12-28 13:01 | XRay Report ---
RIGHT ANKLE 3 VIEWS INDICATION / CLINICAL INFORMATION: pain and swelling s/p fall. COMPARISON: None available. FINDINGS: Mild lateral soft tissue swelling. Small calcaneal spurs. No other significant abnormality Signer Name: Jonathan Marvin MD FACR Signed: 12/28/2019 12:56 PM Workstation Name: [id number]
--- NOTE | 2019-12-28 14:16 | Emergency Department Report ---
ED Lower Extremity HPI - General Chief Complaint: Extremity Injury, Lower Stated Complaint: FALL Time Seen by Provider: 12/28/19 13:47 Source: patient Mode of arrival: Wheelchair Limitations: No Limitations - History of Present Illness Initial Comments: 59 y/o female presents to ED this Friday c/o of right ankle pain after stepping in hole and rolling ankle this past Friday and c/o pain to the Ankle and foot since the accident. Complaint: ankle injury -: Sudden Injury: Ankle: Right Type of Injury: inversion Place: home Severity: moderate Worsens With: weight bearing, movement, palpation Context: walking Associated Symptoms: swelling, able to partially bear weight - Related Data Previous Rx's Medication Instructions Recorded Last Taken Type Aspirin [Aspirin BABY CHEW TAB] 81 mg PO QDAY #30 tab.chew 08/21/17 Unknown Rx HYDROcodone/APAP 5-325 [[place] 1 - 2 each PO Q6HR PRN #14 tablet 02/14/19 Unknown Rx 5/325] Ibuprofen [Motrin 800 MG tab] 800 mg PO Q8HR PRN #20 tablet 02/14/19 Unknown Rx Allergies Allergy/AdvReac Type Severity Reaction Status Date / Time No Known Allergies Allergy Verified 12/28/19 12:12 ED Review of Systems ROS: Stated complaint: FALL Other details as noted in HPI Comment: All other systems reviewed and negative ED Past Medical Hx - Past Medical History Previous Medical History?: Yes Hx Congestive Heart Failure: No Hx Diabetes: Yes Hx Kidney Stones: Yes Hx Asthma: No Hx COPD: No Additional medical history: high cholesterol. 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 - Surgical History Past Surgical History?: Yes Hx Cholecystectomy: Yes Additional Surgical History: tonsil and adnoids, tubes in ears - Social History Smoking Status: Current Every Day Smoker Substance Use Type: Alcohol - Medications Home Medications: Home Medications Medication Instructions Recorded Confirmed Last Taken Type Aspirin [Aspirin BABY CHEW TAB] 81 mg PO QDAY #30 tab.chew 08/21/17 Unknown Rx HYDROcodone/APAP 5-325 [[place] 1 - 2 each PO Q6HR PRN #14 tablet 02/14/19 Unknown Rx 5/325] Ibuprofen [Motrin 800 MG tab] 800 mg PO Q8HR PRN #20 tablet 02/14/19 Unknown Rx ED Physical Exam - General Limitations: No Limitations General appearance: alert, in no apparent distress - Head Head exam: Present: atraumatic, normocephalic - Expanded Lower Extremity Exam Right Ankle exam: Present: tenderness (medial malleous region), swelling. Absent: laceration, ecchymosis, dislocation, erythema, anterior draw sign ED Course Vital Signs 12/28/19 14:34 Respiratory 18 Rate ED Lower Extremity MDM - Radiology Data Radiology results: report reviewed Print Report Referring Physician:ED DOCPatient Name:DORY ISBELLPatient ID:[id number] of :[id number]:FemaleAccession:[id number] Date:[id number] Status:Finalized Findings [facility] [address] [place] [address] XRay Report Signed Patient: DORY ISBELL MR#: [id number] : 1960 Acct:[id number] Age/Sex: 59 / F ADM Date: 12/28/19 Loc: ED Attending Dr: Ordering Physician: OJRGE DICKSON MD Date of Service: 12/28/19 Procedure(s): XR ankle 3+V RT Accession Number(s): [id number] cc: ED MD YESSI Fluoro Time In Minutes: RIGHT ANKLE 3 VIEWS INDICATION / CLINICAL INFORMATION: pain and swelling s/p fall. COMPARISON: None available. FINDINGS: Mild lateral soft tissue swelling. Small calcaneal spurs. No other significant abnormality Signer Name: Jonathan Marvin MD FACR Signed: 12/28/2019 12:56 PM Workstation Name: [id number] Transcribed By: MS Dictated By: Jonathan Marvin MD Electronically Authenticated By: Jonathan Marvin MD Signed Date/Time: 12/28/19 1256 DD/ 1256 TD/TT: Critical care attestation.: If time is entered above; I have spent that time in minutes in the direct care of this critically ill patient, excluding procedure time. ED Disposition Clinical Impression: Ankle sprain Disposition: - TO HOME OR SELFCARE Is pt being admited?: No Does the pt Need Aspirin: No Condition: Stable Instructions: Ankle Sprain (ED), RICE Therapy (ED) Referrals: GIRMA COON MD [Primary Care Provider] - 3-5 Days CARLOS EDUARDO BRYANT MD [Staff Physician] - 3-5 Days Forms: Work/School Release Form(ED)
[2019-12-28] MEDS ORDERED: HYDROcodone/ACETAMINOPHEN 5-325 MG TAB PO STA (14:20)
== END 2019-12-28 15:18 | disposition home or self-care (01) ==
LOC: ED 12:05
DX: S93.401A Sprain of unspecified ligament of right ankle, initial encounter (principal); E11.9 Type 2 diabetes mellitus without complications; E78.00 Pure hypercholesterolemia, unspecified; F17.200 Nicotine dependence, unspecified, uncomplicated; Z87.442 Personal history of urinary calculi; Z79.899 Other long term (current) drug therapy; Z90.49 Acquired absence of other specified parts of digestive tract; W17.2XXA Fall into hole, initial encounter; Y93.89 Activity, other specified; Y92.89 Other specified places as the place of occurrence of the external cause; Y99.8 Other external cause status
CPT/HCPCS: 99283

== ENCOUNTER 2020-07-26 07:43 | Emergency (ER) | payer SELFPAY ==
[2020-07-26 08:08] LABS: Basophils # (Auto) 0.1 K/mm3 (0.0-0.1); Basophils % (Auto) 0.5 % (0.0-1.8); Eosinophils # (Auto) 0.1 K/mm3 (0.0-0.4); Eosinophils % (Auto) 1.1 % (0.0-4.3); Hemoglobin 15.6 gm/dl (10.1-14.3); Lymphocytes # (Auto) 3.7 K/mm3 (1.2-5.4); Lymphocytes % (Auto) 32.6 % (13.4-35.0); Mean Corpuscular HGB Conc 34 % (30-34); Mean Corpuscular Volume 90 fl (79-97); Monocytes # (Auto) 0.7 K/mm3 (0.0-0.8); Monocytes % (Auto) 6.3 % (0.0-7.3); Platelet Count 386 K/mm3 (140-440); Red Blood Count 5.12 M/mm3 (3.65-5.03); Red Cell Distribution Width 13.8 % (13.2-15.2)
[2020-07-26 08:31] LABS: Alanine Aminotransferase 20 units/L (7-56); Albumin 3.8 g/dL (3.9-5); Blood Urea Nitrogen 7 mg/dL (7-17); Calcium 9.4 mg/dL (8.4-10.2); Hemolysis Index 13
[2020-07-26 08:36] LABS: BUN/Creatinine Ratio 14
[2020-07-26 09:57] LABS: Bilirubin,Urine NEG (Negative); Blood,Urine SM (Negative); Color,Urine Colorless (Yellow); Protein,Urine <15 mg/dL mg/dL (Negative); Urobilinogen,Urine < 2.0 mg/dL (<2.0); WBC,Urine < 1.0 /HPF (0.0-6.0)
[2020-07-26] MEDS ORDERED: SODIUM CHLORIDE 0.9% 1000 ML 1,000 ML IV ONE (12:39)
[2020-07-26] MEDS ORDERED: ONDANSETRON 4 MG/2 ML INJ IV ONE (12:39)
[2020-07-26] MEDS ORDERED: KETOROLAC 30 MG/1 ML INJ IV ONE (12:39)
[2020-07-26] MEDS ORDERED: MORPHINE 4 MG/1 ML INJ IV ONE (12:39)
--- NOTE | 2020-07-26 12:40 | Emergency Department Report ---
ED General Adult HPI - General Chief complaint: Abdominal Pain Stated complaint: LEFT SIDE KIDNEY PAIN Time Seen by Provider: 07/26/20 12:38 Source: patient Mode of arrival: Ambulatory Limitations: Other - History of Present Illness Initial comments: Patient is a 60-year-old female presents emergency room with complaints of left flank pain that began 4 days ago. She states that she gets intermittent sharp stabbing pain. She states that she does have a history of kidney stones but has not had one in multiple years and was able to pass it on her own without surgical intervention. She states that she has associated nausea. She denies any fever, vomiting, diarrhea, constipation, hematochezia, melena, hematemesis, dysuria, dark urine, odor to the urine, CP, SOB, cough. She also has a past medical history of COPD, NSTEMI, DM. No allergies to medications. - Related Data Previous Rx's Medication Instructions Recorded Last Taken Type Aspirin [Aspirin BABY CHEW TAB] 81 mg PO QDAY #30 tab.chew 08/21/17 Unknown Rx HYDROcodone/APAP 5-325 [[place] 1 - 2 each PO Q6HR PRN #14 tablet 02/14/19 Unknown Rx 5/325] Ibuprofen [Motrin 800 MG tab] 800 mg PO Q8HR PRN #20 tablet 02/14/19 Unknown Rx Naproxen [EC-Naproxen] 500 mg PO BID PRN #14 tablet.dr 07/26/20 Unknown Rx Ondansetron [Zofran Odt] 4 mg PO Q8HR PRN #7 tab.rapdis 07/26/20 Unknown Rx methOCARBAMOL [Robaxin TAB] 500 mg PO BID PRN #14 tab 07/26/20 Unknown Rx traMADoL [Ultram 50 MG tab] 50 mg PO Q6HR PRN #10 tablet 07/26/20 Unknown Rx Allergies Allergy/AdvReac Type Severity Reaction Status Date / Time No Known Allergies Allergy Verified 07/26/20 07:51 ED Review of Systems ROS: Stated complaint: LEFT SIDE KIDNEY PAIN Other details as noted in HPI Comment: All other systems reviewed and negative ED Past Medical Hx - Past Medical History Hx Congestive Heart Failure: No Hx Diabetes: Yes Hx Kidney Stones: Yes Hx Asthma: No Hx COPD: No Additional medical history: high cholesterol. 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 - Surgical History Hx Cholecystectomy: Yes Additional Surgical History: tonsil and adnoids, tubes in ears - Social History Smoking Status: Current Every Day Smoker Substance Use Type: None - Medications Home Medications: Home Medications Medication Instructions Recorded Confirmed Last Taken Type Aspirin [Aspirin BABY CHEW TAB] 81 mg PO QDAY #30 tab.chew 08/21/17 Unknown Rx HYDROcodone/APAP 5-325 [[place] 1 - 2 each PO Q6HR PRN #14 tablet 02/14/19 Unknown Rx 5/325] Ibuprofen [Motrin 800 MG tab] 800 mg PO Q8HR PRN #20 tablet 02/14/19 Unknown Rx Naproxen [EC-Naproxen] 500 mg PO BID PRN #14 tablet.dr 07/26/20 Unknown Rx Ondansetron [Zofran Odt] 4 mg PO Q8HR PRN #7 tab.rapdis 07/26/20 Unknown Rx methOCARBAMOL [Robaxin TAB] 500 mg PO BID PRN #14 tab 07/26/20 Unknown Rx traMADoL [Ultram 50 MG tab] 50 mg PO Q6HR PRN #10 tablet 07/26/20 Unknown Rx ED Physical Exam - General Limitations: Other General appearance: alert, in no apparent distress - Head Head exam: Present: atraumatic, normocephalic - Eye Eye exam: Present: normal appearance - ENT ENT exam: Present: mucous membranes moist - Respiratory Respiratory exam: Present: normal lung sounds bilaterally. Absent: respiratory distress, wheezes, rales, rhonchi, stridor, chest wall tenderness, accessory m uscle use, decreased breath sounds, prolonged expiratory - Cardiovascular Cardiovascular Exam: Present: regular rate, normal rhythm, normal heart sounds. Absent: systolic murmur, diastolic murmur, rubs, gallop - GI/Abdominal GI/Abdominal exam: Present: soft, normal bowel sounds. Absent: distended, tenderness, guarding, rebound, rigid - Back Exam Back exam: Present: CVA tenderness (L). Absent: CVA tenderness (R) - Neurological Exam Neurological exam: Present: alert, oriented X3 - Psychiatric Psychiatric exam: Present: normal affect, normal mood - Skin Skin exam: Present: warm, dry, intact ED Course Vital Signs 07/26/20 07/26/20 07/26/20 07:52 13:31 13:32 Temperature 97.9 F Pulse Rate 74 Respiratory 18 16 16 Rate Blood Pressure 174/64 Blood Pressure [Left] O2 Sat by Pulse 98 Oximetry 07/26/20 14:36 Temperature Pulse Rate 100 H Respiratory 18 Rate Blood Pressure Blood Pressure 156/96 [Left] O2 Sat by Pulse 98 Oximetry ED Medical Decision Making - Lab Data Result diagrams: 07/26/20 07:57 07/26/20 07:57 Lab Results 07/26/20 07/26/20 07/26/20 Range/Units 07:57 07:57 07:57 WBC 11.5 H (4.5-11.0) K/mm3 RBC 5.12 H (3.65-5.03) M/mm3 Hgb 15.6 H (10.1-14.3) gm/dl Hct 46.0 H (30.3-42.9) % MCV 90 (79-97) fl MCH 30 (28-32) pg MCHC 34 (30-34) % RDW 13.8 (13.2-15.2) % Plt Count 386 (140-440) K/mm3 Lymph % (Auto) 32.6 (13.4-35.0) % Eddy % (Auto) 6.3 (0.0-7.3) % Eos % (Auto) 1.1 (0.0-4.3) % Baso % (Auto) 0.5 (0.0-1.8) % Lymph # (Auto) 3.7 (1.2-5.4) K/mm3 Eddy # (Auto) 0.7 (0.0-0.8) K/mm3 Eos # (Auto) 0.1 (0.0-0.4) K/mm3 Baso # (Auto) 0.1 (0.0-0.1) K/mm3 Seg Neutrophils % 59.5 (40.0-70.0) % Seg Neutrophils # 6.8 (1.8-7.7) K/mm3 Sodium 134 L (137-145) mmol/L Potassium 4.2 (3.6-5.0) mmol/L Chloride 100.7 (98-107) mmol/L Carbon Dioxide 25 (22-30) mmol/L Anion Gap 13 mmol/L BUN 7 (7-17) mg/dL Creatinine 0.5 L (0.6-1.2) mg/dL Estimated GFR > 60 ml/min BUN/Creatinine Ratio 14 % Glucose 140 H (65-100) mg/dL Calcium 9.4 (8.4-10.2) mg/dL Total Bilirubin 0.30 (0.1-1.2) mg/dL AST 14 (5-40) units/L ALT 20 (7-56) units/L Alkaline Phosphatase 134 H (35-129) units/L Total Protein 7.6 (6.3-8.2) g/dL Albumin 3.8 L (3.9-5) g/dL Albumin/Globulin Ratio 1.0 % Lipase 31 (13-60) units/L Urine Color (Yellow) Urine Turbidity (Clear) Urine pH (5.0-7.0) Ur Specific [place] (1.003-1.030) Urine Protein (Negative) mg/dL Urine Glucose (UA) (Negative) mg/dL Urine Ketones (Negative) mg/dL Urine Blood (Negative) Urine Nitrite (Negative) Urine Bilirubin (Negative) Urine Urobilinogen (<2.0) mg/dL Ur Leukocyte Esterase (Negative) Urine WBC (Auto) (0.0-6.0) /HPF Urine RBC (Auto) (0.0-6.0) /HPF U Epithel Cells (Auto) (0-13.0) /HPF 12/30/20 Range/Units Unknown WBC (4.5-11.0) K/mm3 RBC (3.65-5.03) M/mm3 Hgb (10.1-14.3) gm/dl Hct (30.3-42.9) % MCV (79-97) fl MCH (28-32) pg MCHC (30-34) % RDW (13.2-15.2) % Plt Count (140-440) K/mm3 Lymph % (Auto) (13.4-35.0) % Eddy % (Auto) (0.0-7.3) % Eos % (Auto) (0.0-4.3) % Baso % (Auto) (0.0-1.8) % Lymph # (Auto) (1.2-5.4) K/mm3 Eddy # (Auto) (0.0-0.8) K/mm3 Eos # (Auto) (0.0-0.4) K/mm3 Baso # (Auto) (0.0-0.1) K/mm3 Seg Neutrophils % (40.0-70.0) % Seg Neutrophils # (1.8-7.7) K/mm3 Sodium (137-145) mmol/L Potassium (3.6-5.0) mmol/L Chloride (98-107) mmol/L Carbon Dioxide (22-30) mmol/L Anion Gap mmol/L BUN (7-17) mg/dL Creatinine (0.6-1.2) mg/dL Estimated GFR ml/min BUN/Creatinine Ratio % Glucose (65-100) mg/dL Calcium (8.4-10.2) mg/dL Total Bilirubin (0.1-1.2) mg/dL AST (5-40) units/L ALT (7-56) units/L Alkaline Phosphatase (35-129) units/L Total Protein (6.3-8.2) g/dL Albumin (3.9-5) g/dL Albumin/Globulin Ratio % Lipase (13-60) units/L Urine Color Colorless (Yellow) Urine Turbidity Clear (Clear) Urine pH 7.0 (5.0-7.0) Ur Specific [place] 1.002 L (1.003-1.030) Urine Protein <15 mg/dl (Negative) mg/dL Urine Glucose (UA) Neg (Negative) mg/dL Urine Ketones Neg (Negative) mg/dL Urine Blood Sm (Negative) Urine Nitrite Neg (Negative) Urine Bilirubin Neg (Negative) Urine Urobilinogen < 2.0 (<2.0) mg/dL Ur Leukocyte Esterase Neg (Negative) Urine WBC (Auto) < 1.0 (0.0-6.0) /HPF Urine RBC (Auto) 1.0 (0.0-6.0) /HPF U Epithel Cells (Auto) < 1.0 (0-13.0) /HPF Vital Signs 07/26/20 07/26/20 07/26/20 07:52 13:31 13:32 Temperature 97.9 F Pulse Rate 74 Respiratory 18 16 16 Rate Blood Pressure 174/64 Blood Pressure [Left] O2 Sat by Pulse 98 Oximetry 07/26/20 14:36 Temperature Pulse Rate 100 H Respiratory 18 Rate Blood Pressure Blood Pressure 156/96 [Left] O2 Sat by Pulse 98 Oximetry - Radiology Data Radiology results: report reviewed CT abdomen pelvis without contrast Impression: no acute abdomen no pelvic abnormality. Bilateral nonobstructing nephrolithiasis. 5 mm right middle lobe pulmonary nodule stable dating back to 08/20/2017. In the absence of high risk for pulmonary neoplasm no routine follow-up is recommended. Radiologist Tobi Bernal MD - Medical Decision Making Patient is a 60-year-old female presents emergency room with complaints of left flank pain that began 4 days ago. She states that she gets intermittent sharp stabbing pain. She states that she does have a history of kidney stones but has not had one in multiple years and was able to pass it on her own without surgical intervention. She states that she has associated nausea. She denies any fever, vomiting, diarrhea, constipation, hematochezia, melena, hematemesis, dysuria, dark urine, odor to the urine, CP, SOB, cough. She also has a past medical history of COPD, NSTEMI, DM. No allergies to medications. vss. on exam: Patient has left CVA tenderness, no abdominal tenderness on exam, no guarding, no rebound, no rigidity, normal bowel sounds, no peritoneal signs. Labs are stable. UA is within normal limits. CT abdomen pelvis without contrast Impression: no acute abdomen no pelvic abnormality. Bilateral nonobstructing nephrolithiasis. 5 mm right middle lobe pulmonary nodule stable dating back to 08/20/2017. In the absence of high risk for pulmonary neoplasm no routine f ollow-up is recommended. Discussed all findings with patient and answered questions. Given the patient is a smoker, discussed the importance of follow-up with primary care doctor regarding pulmonary nodule. Patient given medications while in the emergency department and symptoms completely improved and she was feeling much better and ready to go home. Patient given prescription for naproxen, Robaxin, tramadol, Zofran. Advised patient Please take medication as prescribed. Increase your water intake. Follow-up with your primary care doctor. Follow-up with urologist. Please discuss the incidental finding of a pulmonary nodule on your CT with your primary care doctor. Return to emergency room for any new or worsening symptoms. - Differential Diagnosis UTI, pyelonephritis, hydronephrosis, nephrolithiasis, back pain, constipati Critical care attestation.: If time is entered above; I have spent that time in minutes in the direct care of this critically ill patient, excluding procedure time. ED Disposition Clinical Impression: Left flank pain, Nephrolithiasis, Pulmonary nodule Disposition: DC- TO HOME OR SELFCARE Is pt being admited?: No Does the pt Need Aspirin: No Condition: Stable Instructions: Kidney Stones, Flank Pain, Adult, Abdominal Pain (ED) Additional Instructions: Please take medication as prescribed. Increase your water intake. Follow-up with your primary care doctor. Follow-up with urologist. Please discuss the incidental finding of a pulmonary nodule on your CT with your primary care doctor. Return to emergency room for any new or worsening symptoms. Prescriptions: Naproxen [EC-Naproxen] 500 mg PO BID PRN #14 tablet.dr PRN Reason: pain methOCARBAMOL [Robaxin TAB] 500 mg PO BID PRN #14 tab PRN Reason: pain traMADoL [Ultram 50 MG tab] 50 mg PO Q6HR PRN #10 tablet PRN Reason: Pain , Severe (7-10) Ondansetron [Zofran Odt] 4 mg PO Q8HR PRN #7 tab.rapdis PRN Reason: Nausea And Vomiting Referrals: PRIMARY MD JAYMIE [Primary Care Provider] - 2-3 Days ОЛЬГА MILES MD [Staff Physician] - 2-3 Days Forms: Work/School Release Form(ED) Time of Disposition: 14:12 Print Language: ARABIC
--- NOTE | 2020-07-26 13:55 | Cat Scan Report ---
CT ABDOMEN AND PELVIS WITHOUT CONTRAST INDICATION / CLINICAL INFORMATION: right flank pain, nausea, hx of nephrolithiasis. TECHNIQUE: Axial CT images were obtained through the abdomen and pelvis without IV contrast. All CT scans at [facility] location are performed using CT dose reduction for ALARA by means of automated exposure control. COMPARISON: 08/20/2017 and 01/24/2027 CTA abdomen pelvis FINDINGS: LOWER CHEST: 8 mm perifissural nodule along the left major fissure likely representing a benign intra pulmonary lymph node. 5 mm right middle lobe nodule adjacent to the pleural margin (axial series 2 im age 4) which is stable dating back to 08/20/2017. HEPATOBILIARY: No significant abnormality. PANCREAS/SPLEEN/ADRENALS: No significant abnormality. GENITOURINARY: Few bilateral nonobstructing nephroliths measuring up to 5 mm on the right and 2 mm on the left. No evidence of obstructive uropathy. GASTROINTESTINAL/MESENTERY: No bowel obstruction or inflammation. No significant free fluid or eviden ce of free air. Mild sofy mesentery similar when compared to 08/20/2017. RETROPERITONEUM: No significant adenopathy. REPRODUCTIVE ORGANS: No significant abnormality. VASCULAR: Moderate atherosclerotic calcification without acute abnormality. BODY WALL: No significant abnormality. SKELETAL SYSTEM: No significant abnormality. IMPRESSION: 1. No acute abdominopelvic abnormality. Bilateral nonobstructing nephrolithiasis. 2. 5 mm right middle lobe pulmonary nodule stable dating back to 08/20/2017. In the absence of high ri sk for pulmonary neoplasm no routine follow-up is recommended. Signer Name: Tobi Bernal MD Signed: 07/26/2020 1:51 PM Workstation Name: [id number]
[2020-07-26 14:37] VITALS: BP 156/96
== END 2020-07-26 14:24 | disposition home or self-care (01) ==
LOC: ED 07:43
DX: N20.0 Calculus of kidney (principal); R91.1 Solitary pulmonary nodule; R10.9 Unspecified abdominal pain; E11.9 Type 2 diabetes mellitus without complications; E78.00 Pure hypercholesterolemia, unspecified; F17.200 Nicotine dependence, unspecified, uncomplicated; Z87.442 Personal history of urinary calculi; Z79.899 Other long term (current) drug therapy; Z98.890 Other specified postprocedural states
CPT/HCPCS: 36415; 74176; 80053; 81001; 83690; 85025; 96361; 96374; 96375; 99284; J1885; J2270; J2405; J7030; Q9967

== ENCOUNTER 2021-04-25 10:14 | Emergency (ER) | payer SELFPAY ==
[2021-04-25] MEDS ORDERED: ONDANSETRON 4 MG/2 ML INJ IV ONE (12:33)
[2021-04-25] MEDS ORDERED: SODIUM CHLORIDE 0.9% 1000 ML 1,000 ML IV ONE (12:33)
[2021-04-25] MEDS ORDERED: KETOROLAC 30 MG/1 ML INJ IV ONE (12:33)
[2021-04-25 12:34] VITALS: BP 167/63
--- NOTE | 2021-04-25 12:34 | Emergency Department Report ---
ED Back Pain/Injury HPI - General Chief Complaint: Back Pain/Injury Stated Complaint: SENT BY DR MOJICA/ENOCH FOR KIDNEY STONE Time Seen by Provider: 04/25/21 12:11 Source: patient Limitations: No Limitations - History of Present Illness Initial Comments: 61-year-old female who reports no significant past medical history presents to the ER today with complaints of right flank pain. Patient states that her symptoms started about 3 to 4 days ago. Patient states that the pain has been a constant but waxes and waning pain, and recently started radiating into her right side of her abdomen. She states that she did vomit about 3 days ago but this has since resolved. She still reports mild intermittent nausea. She reports urinary frequency but she accounts that for her increasing her water intake. She denies any dysuria, hematuria, urinary odor or urgency. She denies any fever or chills. Patient states that she had kidney stone several years ago, she called her doctor's office and they recommended that she come to the ER to rule out kidney stone as a possible cause of her pain. Patient states that the pain does seem to be worse with certain movements. She states that when it first started she thought it was related to a pulled muscle because she does do some strenuous activity at work. She has not taken anything for the pain. She states that she has no bowel or bladder incontinence, saddle anesthesia, lower extremity weakness, numbness or tingling. -: Gradual - Related Data Allergies Allergy/AdvReac Type Severity Reaction Status Date / Time No Known Allergies Allergy Verified 04/25/21 10:34 ED Review of Systems ROS: Stated complaint: SENT BY DR MOJICA/ENOCH FOR KIDNEY STONE Other details as noted in HPI Comment: All other systems reviewed and negative Constitutional: denies: chills, fever Eyes: denies: eye pain, eye discharge, vision change ENT: denies: ear pain, throat pain, dental pain, hearing loss, epistaxis, congestion Respiratory: denies: cough, shortness of breath, wheezing Cardiovascular: denies: chest pain, palpitations, dyspnea on exertion, edema, syncope, paroxysmal nocturnal dyspnea Gastrointestinal: abdominal pain, nausea, vomiting. denies: diarrhea, constipation, hematemesis, melena, hematochezia Genitourinary: frequency. denies: urgency, dysuria, hematuria, discharge, abnormal menses, dyspareunia, other Musculoskeletal: denies: back pain, joint swelling, arthralgia Skin: denies: rash, lesions, change in color, change in hair/nails, pruritus Neurological: denies: headache, weakness, numbness, paresthesias, confusion, abnormal gait, vertigo Psychiatric: denies: anxiety, depression, auditory hallucinations, visual hallucinations, homicidal thoughts, suicidal thoughts Hematological/Lymphatic: denies: easy bleeding, easy bruising, swollen glands ED Past Medical Hx - Past Medical History Hx Congestive Heart Failure: No Hx Diabetes: Yes Hx Kidney Stones: Yes Hx Asthma: No Hx COPD: No Additional medical history: high cholesterol. 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 Absent: respiratory distress, wheezes, rales, rhonchi - Cardiovascular Cardiovascular Exam: Present: regular rate, normal rhythm, normal heart sounds - GI/Abdominal GI/Abdominal exam: Present: soft, tenderness (Mild ttp RUQ without guarding or rebound ). Absent: distended, guarding, rebound, rigid - Back Exam Back exam: Present: CVA tenderness (R) (mild ), paraspinal tenderness (mild left lower lumbar area) - Neurological Exam Neurological exam: Present: alert, oriented X3, CN II-XII intact, normal gait - Psychiatric Psychiatric exam: Present: normal affect, normal mood - Skin Skin exam: Present: intact ED Course Vital Signs 04/25/21 10:34 Pulse Rate 71 Respiratory 18 Rate Blood Pressure 167/63 O2 Sat by Pulse 95 Oximetry ED Medical Decision Making - Lab Data Result diagrams: 04/25/21 13:02 04/25/21 13:02 - Radiology Data Radiology results: report reviewed Patient: DORY ISBELL MR#: [id number] : 1960 Acct:[id number] Age/Sex: 61 / F ADM Date: 04/25/21 Loc: ED Attending Dr: Ordering Physician: NAHOMY WOODS Date of Service: 04/25/21 Procedure(s): CT abdomen pelvis wo con Accession Number(s): [id number] cc: NAHOMY WOODS CT ABDOMEN AND PELVIS WITHOUT CONTRAST INDICATION / CLINICAL INFORMATION: Right back/flank pain. TECHNIQUE: Axial CT images were obtained through the abdomen and pelvis without IV contrast. All CT scans at this location are performed using CT dose reduction for ALARA by means of automated exposure control. COMPARISON: 07/26/2020 FINDINGS: LOWER CHEST: No significant abnormality. LIVER: No significant abnormality. GALLBLADDER: Surgically absent. BILE DUCTS: No significant abnormality. PANCREAS: No significant abnormality. SPLEEN: No significant abnormality. ADRENALS: No significant abnormality. RIGHT KIDNEY / URETER: Several nonobstructing stones with the largest measuring 4.5 mm. LEFT KIDNEY / URETER: Small nonobstructing stones. Subcentimeter cyst. STOMACH / SMALL BOWEL: No significant abnormality. COLON: Noninflamed diverticulosis. APPENDIX: No significant abnormality. PERITONEUM: No free fluid. No free air. No fluid collection. LYMPH NODES: No significant adenopathy. VASCULAR STRUCTURES: No significant abnormality. URINARY BLADDER: No significant abnormality. REPRODUCTIVE ORGANS: No significant abnormality. ADDITIONAL FINDINGS: None. SKELETAL SYSTEM: No significant abnormality. IMPRESSION: 1. Nonobstructing renal stones right greater than left. 2. Mild noninflamed colonic diverticulosis. Signer Name: Tahir Jones MD Signed: 04/25/2021 1:38 PM Workstation Name: [id number] Transcribed By: ES Dictated By: Tahir Jones MD Electronically Authenticated By: Tahir Jones MD Signed Date/Time: 04/25/21 1338 DD/ 1328 TD/TT: - Medical Decision Making CT abdomen pelvis without contrast shows nonobstructing renal stones. No apparent renal stones, or hydronephrosis. No signs of pyelonephritis or any oth er acute abnormalities. Labs reviewed -CBC and CMP unremarkable. Urinalysis does not suggest UTI. Discussed lab and CT results with patient. She is currently sitting comfortably, receiving IV fluids and meds. She is not toxic and she is not ill-appearing. She is neurologically intact discussed with her that she does have intrarenal stones but no apparent ureteral stones, UTI or pyelonephritis. Discussed with her that her pain could be related to musculoskeletal pain that she does have tenderness to palpation to lumbar paraspinal muscles and her pain seems to be worse with movement. I will give her referral to a urologist as well as a orthospine specialist. She reported that her PCP that she saw did give her a prescription for hydrocodone because she was taking 800 mg ibuprofen and it was not helping and she was also prescribed Cipro for possible UTI. Informed the patient that she can continue taking the hydrocodone that she has at home, but I recommend stopping the Cipro as his urine did not appear to be infected. Patient expressed understanding of all instructions and agree with plan. Patient stable at time of discharge - Differential Diagnosis Ureterolithiasis, UTI, pyelonephritis, musculoskeletal pain Critical care attestation.: If time is entered above; I have spent that time in minutes in the direct care of this critically ill patient, excluding procedure time. ED Disposition Clinical Impression: Flank pain, Musculoskeletal back pain, Nephrolithiasis Disposition: 01 HOME / SELF CARE / HOMELESS Is pt being admited?: No Does the pt Need Aspirin: No Condition: Stable Instructions: Kidney Stones, [id number], Musculoskeletal Pain, Flank Pain, Adult, [id number] Additional Instructions: I recommend that you continue taking the hydrocodone that was prescribed to you by you primary care doctor that you saw. You do not have to continue with the Cipro as there was no signs of a urinary tract infection seen on your urine here today. I do recommend increasing your water intake. I also recommend follow-up with the urologist listed in your discharge instructions. You will also be given referral information to orthospine specialist, as this pain can also be related to your back/spine. Return to the ER if your symptoms changes or worsens in any way. Referrals: ОЛЬГА MILES MD [Staff Physician] - 3-5 Days (Urologist ) [facility] [Provider Group] - 3-5 Days (Call and ask for Orthospine Specialist) [facility] [Provider Group] - 3-5 Days (Orthospine Specialist [address] [facility] [address], [place] [address] ) Time of Disposition: 14:38 Print Language: [place]
[2021-04-25 13:22] LABS: Basophils % (Auto) 0.5 % (0.0-1.8); Eosinophils # (Auto) 0.1 K/mm3 (0.0-0.4); Hematocrit 45.5 % (30.3-42.9); Hemoglobin 15.5 gm/dl (10.1-14.3); Lymphocytes % (Auto) 43.4 % (13.4-35.0); Mean Corpuscular HGB Conc 34 % (30-34); Mean Corpuscular Volume 89 fl (79-97); Monocytes # (Auto) 0.6 K/mm3 (0.0-0.8); Monocytes % (Auto) 8.9 % (0.0-7.3); Platelet Count 273 K/mm3 (140-440); Red Blood Count 5.11 M/mm3 (3.65-5.03)
[2021-04-25 13:39] LABS: Bacteria,Urine 1+ /HPF (Negative); Bilirubin,Urine NEG (Negative); Blood,Urine LG (Negative); Color,Urine Yellow (Yellow); Mucus,Urine FEW /HPF; Protein,Urine <15 mg/dL mg/dL (Negative); Urobilinogen,Urine < 2.0 mg/dL (<2.0)
--- NOTE | 2021-04-25 13:42 | Cat Scan Report ---
CT ABDOMEN AND PELVIS WITHOUT CONTRAST INDICATION / CLINICAL INFORMATION: Right back/flank pain. TECHNIQUE: Axial CT images were obtained through the abdomen and pelvis without IV contrast. All CT scans at this location are performed using CT dose reduction for ALARA by means of automated exposure control. COMPARISON: 07/26/2020 FINDINGS: LOWER CHEST: No significant abnormality. LIVER: No significant abnormality. GALLBLADDER: Surgically absent. BILE DUCTS: No significant abnormality. PANCREAS: No significant abnormality. SPLEEN: No significant abnormality. ADRENALS: No significant abnormality. RIGHT KIDNEY / URETER: Several nonobstructing stones with the largest measuring 4.5 mm. LEFT KIDNEY / URETER: Small nonobstructing stones. Subcentimeter cyst. STOMACH / SMALL BOWEL: No significant abnormality. COLON: Noninflamed diverticulosis. APPENDIX: No significant abnormality. PERITONEUM: No free fluid. No free air. No fluid collection. LYMPH NODES: No significant adenopathy. VASCULAR STRUCTURES: No significant abnormality. URINARY BLADDER: No significant abnormality. REPRODUCTIVE ORGANS: No significant abnormality. ADDITIONAL FINDINGS: None. SKELETAL SYSTEM: No significant abnormality. IMPRESSION: 1. Nonobstructing renal stones right greater than left. 2. Mild noninflamed colonic diverticulosis. Signer Name: Tahir Jones MD Signed: 04/25/2021 1:38 PM Workstation Name: [id number]
[2021-04-25 13:47] LABS: Alanine Aminotransferase 27 units/L (7-56); Albumin 4.2 g/dL (3.9-5); Blood Urea Nitrogen 10 mg/dL (7-17); Calcium 9.1 mg/dL (8.4-10.2); Hemolysis Index 19
[2021-04-25 13:54] LABS: BUN/Creatinine Ratio 20; Bilirubin,Direct < 0.2 mg/dL (0-0.2)
== END 2021-04-25 16:44 | disposition home or self-care (01) ==
LOC: ED 10:14
DX: N20.0 Calculus of kidney (principal); M79.18 Myalgia, other site; E11.9 Type 2 diabetes mellitus without complications; E78.00 Pure hypercholesterolemia, unspecified; F17.200 Nicotine dependence, unspecified, uncomplicated
CPT/HCPCS: 36415; 74176; 80048; 80076; 81001; 83690; 85025; 96361; 96374; 96375; 99284; J1885; J2405; J7030